=== PATIENT | female | born 1960 | race Caucasian/White ===

== ENCOUNTER → 2017-06-01 | Outpatient (CLI) | payer BC | END | disposition home or self-care (01) | LOC: KCIC MAMMO 09:37 | DX: N63.21 Unspecified lump in the left breast, upper outer quadrant (principal) | CPT/HCPCS: 76641; 77066 ==

== ENCOUNTER 2018-03-30 23:25 | Emergency (ER) | payer OTHER, BC ==
[2015-02-10 22:19] VITALS: BP 118/76
[~2018-03-30] VITALS: Ht 167.6 cm; Wt 78.5 kg
--- NOTE | 2018-03-31 01:20 | PHYS DOC ---
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 She states that the trunk was not lifted up and around and caused her to fall off of the platform. She states that she landed on a chain that has riblets and that she is not sure if she twisted her leg or something struck her. She states that it happened so fast she wasn't sure exactly what happened. She denies any other injury. She states that it is painful to bear weight on that extremity. Review of Systems Review of Systems Constitutional: Denies fever or chills [] Respiratory: Denies cough or shortness of breath [] Cardiovascular: No additional information not addressed in HPI [] GI: Denies abdominal pain, nausea, vomiting, bloody stools or diarrhea [] : Denies dysuria or hematuria [] Musculoskeletal: See history of present illness Integument: Denies rash or skin lesions [] Neurologic: Denies headache, focal weakness or sensory changes [] Endocrine: Denies polyuria or polydipsia [] All other systems were reviewed and found to be within normal limits, except as documented in this note. Allergies Allergies Allergies Coded Allergies Type Severity Reaction Last Updated Verified Penicillins Allergy Intermediate Rash 03/08/14 Yes Sulfa (Sulfonamide Antibiotics) Allergy Intermediate VOMITING 03/08/14 Yes Physical Exam Physical Exam Constitutional: Well developed, well nourished, no acute distress, non-toxic appearance. [] Cardiovascular:Heart rate regular rhythm, no murmur [] Lungs & Thorax: Bilateral breath sounds clear to auscultation [] Abdomen: Bowel sounds normal, soft, no tenderness, no masses, no pulsatile masses. [] Skin: Warm, dry, no erythema, no rash. [] Back: No tenderness, no CVA tenderness. [] Extremities: tenderness to ankle with erythema and mild edema noted, no gross deformity noted, no cyanosis, no clubbing, ROM slightly decreased due to pain, pulses and sensation are intact distal to injury Neurologic: Alert and oriented X 3, normal motor function, normal sensory function, no focal deficits noted. [] Psychologic: Affect normal, judgement normal, mood normal. [] Current Patient Data Vital Signs Vital Signs Date Time Temp Pulse Resp B/P (MAP) Pulse Ox O2 Delivery O2 Flow Rate FiO2 03/30/18 23:30 98.1 91 20 129/85 (100) 98 Room Air 98.1 EKG EKG [] Radiology/Procedures Radiology/Procedures [] PATIENT: ELOY MAI ACCOUNT: [id number] : 1960 LOCATION: ER AGE: 57 SEX: F EXAM STATUS: DEP ER ORD. PHYSICIAN: OPAL TAYLOR APRN REASON: twisted at work PROCEDURE: ANKLE RIGHT 3V Right ankle, 3 views, 03/30/2018: HISTORY: Ankle pain, twisting injury No fracture or dislocation is identified. There is mild subcutaneous edema. IMPRESSION: No acute bony abnormality is detected. Electronically signed by: Sergio Young MD (03/31/2018 8:12 AM) [facility] DICTATED and SIGNED BY: SERGIO YOUNG MD DATE: 03/31/18 0810 Course & Med Decision Making Course & Med Decision Making Pertinent Labs and Imaging studies reviewed. (See chart for details) []The patient was placed in an Johnathan wrap. She is to follow-up with the Workmen's Compensation physician. She is in agreement with this plan. Dragon Disclaimer Dragon Disclaimer This electronic medical record was generated, in whole or in part, using a voice recognition dictation system. Departure Departure Impression: Primary Impression: Sprain Disposition: HOME, SELF-CARE Condition: STABLE Referrals: NO PCP (PCP) Patient Instructions: Ankle Sprain Additional Instructions: Follow up with your Workmen's Compensation physician for further evaluation and management of your ankle injury. If worsening return to the emergency department. JANNA RUCKER DO Mar 31, 2018 01:20 OPAL TAYLOR APRN Mar 31, 2018 16:58
--- NOTE | 2018-03-31 08:16 | RAD ---
Right ankle, 3 views, 03/30/2018: HISTORY: Ankle pain, twisting injury No fracture or dislocation is identified. There is mild subcutaneous edema. IMPRESSION: No acute bony abnormality is detected. Electronically signed by: Sergio Young MD (03/31/2018 8:12 AM) [facility]
== END 2018-03-31 01:25 | disposition home or self-care (01) ==
LOC: ER 23:25
DX: S93.491A Sprain of other ligament of right ankle, initial encounter (principal); M19.90 Unspecified osteoarthritis, unspecified site; Z98.890 Other specified postprocedural states; Z90.710 Acquired absence of both cervix and uterus; Z88.0 Allergy status to penicillin; Z88.2 Allergy status to sulfonamides; X50.1XXA Overexertion from prolonged static or awkward postures, initial encounter; Y93.89 Activity, other specified; Y92.89 Other specified places as the place of occurrence of the external cause; Y99.0 Civilian activity done for income or pay
CPT/HCPCS: 73610; 99284

== ENCOUNTER → 2019-08-28 | Outpatient (CLI) | payer BC ==
[2018-03-30 23:30] VITALS: BP 129/85
--- NOTE | 2019-08-28 14:57 | KCIC ---
Bilateral digital screening mammograms: Reason for examination: Routine screening. Comparison is made to previous studies dated 06/01/2017 and 01/07/2016. Interpretation was made with the benefit of CAD. The skin and nipples show no abnormalities. No abnormal axillary lymph nodes are seen. The breast parenchyma shows scattered fibroglandular density. (Breast density: Category B.) There continues to be some nodularity at the 12:00 position of the left breast which corresponds to a cyst seen on previous ultrasound. There does however appear to be some focal nodularity seen in the subareolar position of the right breast. This is most apparent on the cc view and may represent ductal ectasia. There also appears to be some focally nodularity posterior laterally at approximately the 9:30 position of the right breast. Further evaluation of the right breast with ultrasound is recommended. There are no other dominant masses, suspicious calcifications or architectural distortions. Some benign calcifications are present. Impression: Nodular densities at the subareolar position of the right breast and at the 9:30 position posteriorly in the right breast. Recommend further evaluation with ultrasound. BI-RADS category 0: Incomplete. Needs additional imaging evaluation. "Our facility is accredited by the [employer] Mammography [employer]." This patient's information has been entered into a reminder system for the patient to be notified with the results of her examination and a target date for the next mammogram. Electronically signed by: Lotus Haywood MD (08/28/2019 2:54 PM) [id number]
== END ==
LOC: KCIC MAMMO 13:05
PROVIDERS: ATTEND Obstetrics & Gynecology
DX: Z12.31 Encounter for screening mammogram for malignant neoplasm of breast (principal); N63.41 Unspecified lump in right breast, subareolar
CPT/HCPCS: 77067

== ENCOUNTER → 2019-09-05 | Outpatient (CLI) | payer BC ==
[2018-03-30 23:30] VITALS: BP 129/85
--- NOTE | 2019-09-05 10:19 | RAD ---
DATE: 09/05/2019 9:31 AM EXAM: BREAST RIGHT HISTORY: 58-year-old woman recalled from screening for subareolar right breast nodularity, recommended for ultrasound evaluation COMPARISON: Mammograms of 08/28/2019, 06/01/2017 and 01/07/2016 TECHNIQUE: Targeted ultrasound of the right breast in the subareolar region and at the 9:30 o'clock position was performed. FINDINGS: Ultrasound of the right breast revealed sonographically benign duct ectasia with an 8 mm cyst within internal septation and low-level echoes, likely correlates with the mammographic finding recalled from screening. Images of the lateral right breast more posteriorly did not save but no suspicious sonographic findings were identified. IMPRESSION: Probably benign fibrocystic change in the right breast. Recommend six-month follow-up right diagnostic mammogram and targeted ultrasound, assessing the lateral posterior right breast and the subareolar right breast.. BI-RADS CATEGORY: 3 PROBABLY BENIGN FINDING(S)-SHORT INTERVAL FOLLOW-UP SUGGESTED RECOMMENDED FOLLOW-UP: 6M 6 MONTH FOLLOW-UP Right mammogram and targeted breast ultrasound recommended. PQRS compliance statement: Patient information was entered into a reminder system with a target due date for the next mammogram. Mammography is a sensitive method for finding small breast cancers, but it does not detect them all and is not a substitute for careful clinical examination. A negative mammogram does not negate a clinically suspicious finding and should not result in delay in biopsying a clinically suspicious abnormality. "Our facility is accredited by the [employer] Mammography [employer]."
== END | disposition home or self-care (01) ==
LOC: US 08:19
PROVIDERS: ATTEND Obstetrics & Gynecology
DX: R92.2 Inconclusive mammogram (principal)
CPT/HCPCS: 76641